=== PATIENT | male | born 1975 | race Caucasian/White ===

== ENCOUNTER 2024-03-18 01:34 | Emergency (ER) | payer OTHER, SELFPAY ==
[2024-03-18 01:35] VITALS: O2SAT 97
[2024-03-18 01:36] VITALS: BP 166/103; PULSE 97; RESP 18; TEMP 36.9; O2SAT 97
--- NOTE | 2024-03-18 02:00 | CT_ITS ---
INDICATION: ? Mastoiditis EXAMINATION: CT IAC TEMPORAL BONES - CT IAC/PF/Orbit/Sella W/ Contrast Injection TECHNIQUE:Routine noncontrast CT protocol was performed of the internal auditory canals and temporal bones. 2-D reformats were performed by the technologist. A radiation dose optimization technique was used for this scan. IV Contrast dosage and agent: None. COMPARISON: None. FINDINGS: RIGHT SIDE: No fracture. SUPERFICIAL SOFT TISSUES: Unremarkable. MASTOID AIR CELLS: Well aerated, unremarkable. EXTERNAL AUDITORY CANALS: Clear. MIDDLE EAR CAVITIES: Well aerated. Ossicles and scutum intact. INTERNAL AUDITORY CANALS: Unremarkable bilateral internal auditory canals. No osseous erosion or widening of the canal. INNER EAR: Unremarkable cochlea, vestibule and semicircular canals. LEFT SIDE: No fracture. SUPERFICIAL SOFT TISSUES: Unremarkable. MASTOID AIR CELLS: Well aerated, unremarkable. EXTERNAL AUDITORY CANALS: Clear. MIDDLE EAR CAVITIES: Well aerated. Ossicles and scutum intact. INTERNAL AUDITORY CANALS: Unremarkable bilateral internal auditory canals. No osseous erosion or widening of the canal. INNER EAR: Unremarkable cochlea, vestibule and semicircular canals. VISUALIZED BRAIN AND POSTERIOR FOSSA: Cerebello-pontine angles are unremarkable. CT/Orb Sella Post Fossa Ear W/CON IMPRESSION: No evidence of mastoiditis. Electronically Signed: Holland Sahu MD at 3:59 EDT ,
[2024-03-18] MEDS: Acyclovir 200 MG Capsule 400 MG PO (02:21)
[2024-03-18] MEDS: Fluorescein 1 MG STRIP 1 STRIP LEFT EYE (02:21)
[2024-03-18] MEDS: predniSONE 20 MG Tablet 60 MG PO (02:21)
[2024-03-18] MEDS: Tetracaine 0.5% Ophthalmic Bottle 1 DRP LEFT EYE (02:21)
[2024-03-18] MEDS: Gabapentin 300 MG Capsule PO (02:21)
--- NOTE | 2024-03-18 03:24 | EX.ED.DYSGE1 ---
HPI History of Present Illness Chief Complaint: Ear Problem Informant: patient Narrative Narrative: Patient is a 48-year-old male with no significant past medical history. He states he noticed ear pain a few days ago and went to an urgent care. He states there he was started on penicillin and prednisone secondary to an ear infection. He reports he is taking his medications as directed but has noticed increased redness and swelling to the left side of his face and ear and now he is having difficulty closing his left eye and even moving her left lip/mouth. Therefore with worsening symptoms he presents for evaluation [facility] no medical history Home Medications ?Medication ?Instructions ?Recorded ?Last Taken ?Type citalopram 40 mg tablet (Celexa) 40 mg PO DAILY 08/29/13 Unknown History cyclobenzaprine 10 mg tablet 10 mg PO TID PRN Muscle Spasm ##20 08/29/13 Unknown Rx ergocalciferol (vitamin D2) 1,250 50,000 unit PO Q7D 08/29/13 Unknown History mcg (50,000 unit) capsule (Vitamin D2) naproxen 500 mg tablet 500 mg PO BID PRN #20 tabs 08/29/13 Unknown Rx artificial tears with lanolin eye 1 applic LEFT EYE QHS PRN dry eyes 03/18/24 Unknown Rx ointment #3.5 grams artificial tears(hypromellose) 0.5 2 drp LEFT EYE Q2H PRN dry eye(s) 03/18/24 Unknown Rx % eye drops #15 mL gabapentin 300 mg capsule 300 mg PO TID 14 days #42 caps 03/18/24 Unknown Rx oxycodone-acetaminophen 5 mg-325 1 tab PO Q6H PRN pain 5 days #20 03/18/24 Unknown Rx mg tablet (Percocet) tabs prednisone 10 mg tablet 10 mg PO DAILY #15 TABLETS 03/18/24 Unknown Rx prednisone 20 mg tablet 60 mg (3 x 20 mg) PO DAILY 5 days 03/18/24 Unknown Rx #15 TABLETS valacyclovir 500 mg tablet 500 mg PO BID 5 days #10 tabs 03/18/24 Unknown Rx Allergy/AdvReac Type Severity Reaction Status Date / Time No Known Allergies Allergy Verified 03/18/24 02:31 Social History Smoking Status: Never smoker ROS ROS ED Constitutional Constitutional ED: Denies chills or fever(s) Eyes Eyes: Denies blurry vision, change in vision or diplopia ENT ENT ED: Reports ear pain left; Denies rhinorrhea or sore throat Cardiovascular Cardiovascular: Denies chest pain Respiratory/Chest Respiratory/Chest: Denies cough or dyspnea Gastrointestinal Gastrointestinal: Denies abdominal pain, diarrhea, nausea or vomiting Genitourinary Genitourinary ED: Denies dysuria Musculoskeletal Musculoskeletal: Denies myalgias or neck pain Integumentary Reports rash Neurologic Neurologic: Reports headache(s) Hematologic/Lymphatic Hematologic/Lymphatic: Denies easy bleeding or easy bruising Allergic/Immunologic Allergic/Immunologic ED: Denies mouth swelling or tongue swelling EXAM Physical Exam Const Vital Signs: 03/18/24 01:35 03/18/24 01:36 03/18/24 03:35 Temperature 98.4 F Temperature Source Oral Pulse Rate 97 75 Respiratory Rate 18 18 Blood Pressure 166/103 H 123/64 H Blood Pressure Mean 124 83 Pulse Ox 97 97 94 Oxygen Delivery Method Room Air Room Air Room Air Positive well nourished and well developed General Appearance ED: well developed HEENT Reports moist mucous membranes HEENT Narrative: No tongue or lip swelling no oral lesions no airway edema or compromise No findings in the posterior pharynx to suggest infection The patient's left ear is erythematous and swollen the erythema does track along the left cheek towards the nose/upper lip and orbit. There is no obvious vesicular changes noted at this time. There is mild swelling along the left posterior ear near the mastoid and pain with palpation at the site. The left ear canal is normal without signs of otitis externa or vesicular lesions. The TM appears normal as well. Eyes PERRL and EOMs intact bilaterally Eyes Narrative: There is scleral injection with increased tearing to the left eye. No foreign body noted Staining with fluorescein does not reveal any uptake of dye or dendritic lesions. Neck supple Neck Narrative: No nuchal rigidity or meningeal signs Resp normal respiratory effort and clear to auscultation bilaterally Cardio regular rate and regular rhythm Extremity normal to inspection Neuro oriented x3 Neuro Narrative: Patient has left-sided facial droop noted. 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 Sensorium / Orientation: alert Psych mental status grossly normal Skin Skin Narrative: Soft tissue swelling and erythema to the left face and ear as documented above MDM MDM MDM Narrative Medical decision making narrative: Patient arrived to the ER hypertensive otherwise with stable vitals. 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 He has swelling of the left ear with erythema and this tracks along the left cheek towards the nose lip and orbit and this is most consistent with early herpes zoster. With concern that there is ocular involvement the eye was stained with fluorescein but there was no dendritic lesions and therefore there is no need for emergent ophthalmology consultation. As the patient did have swelling redness and pain along the mastoids there is concern for acute mastoiditis so CT was obtained. This revealed no acute findings. As the patient's history and exam is consistent with herpes zoster leading to the Murdock's palsy could be started on Valtrex as well as high-dose steroids and given artificial tears in both the eyedrop and ointment to prevent corneal drying and ulceration. However as this is not an acute CVA and there is no ocular involvement such as dendritic lesions at this time he does not need further workup or admitted and he is otherwise safe for discharge History & Record Review Discussion w/independent historian: Patient Radiography Diagnostic Testing: Clinical Impression(s) from Imaging Studies CT Orbit Sella Inner 03/18/24 02:00 IMPRESSION: No evidence of mastoiditis. Electronically Signed: Holland Sahu MD at 3:59 EDT Reading Location ID and State: [facility] / [place] Tel , Service support , Discharge Plan Triage Chief Complaint: Ear Problem ED Provider: Guido Saldivar Dx/Rx/DC Orders Clinical Impression: Murdock's palsy, Herpes zoster Instructions: Murdock's Palsy, Shingles (Herpes Zoster) Prescriptions: New valacyclovir 500 mg tablet 500 mg PO BID 5 Days Qty: 10 0RF prednisone 20 mg tablet 60 mg PO DAILY 5 Days Qty: 15 0RF prednisone 10 mg tablet 10 mg PO DAILY Qty: 15 0RF Rx Instructions: 5 pills po day 1, 4 pills po day 2, 3 pills po day 3, 2 pills po day 4, 1 pill po day 5 gabapentin 300 mg capsule 300 mg PO TID 14 Days Qty: 42 0RF artificial tears(hypromellose) 0.5 % drops 2 drp LEFT EYE Q2H PRN (Reason: dry eye(s)) Qty: 15 0RF artificial tears with lanolin Ointment 1 applic LEFT EYE QHS PRN (Reason: dry eyes) Qty: 3.5 0RF oxycodone-acetaminophen [Percocet] 5-325 mg tablet 1 tab PO Q6H PRN (Reason: pain) 5 Days Qty: 20 0RF No Action citalopram [Celexa] 40 MG tablet 40 mg PO DAILY ergocalciferol (vitamin D2) [Vitamin D2] 50,000 UNIT capsule 50,000 unit PO Q7D cyclobenzaprine 10 MG tablet 10 mg PO TID PRN (Reason: Muscle Spasm) Qty: 20 0RF naproxen 500 MG tablet 500 mg PO BID PRN Qty: 20 0RF Stand Alone Forms: ED Work / School Excuse Primary Care Provider: [facility] Referrals: Nathan Andrew MD [Med Staff - Active Staff] - [facility] [Primary Care Provider] - Activity Restrictions/Additional Instructions: Please stop the medication prescribed from the urgent care and begin taking the prescriptions written by the ER for improved control of your Murdock's palsy most likely brought on by herpes zoster. Take the 60 mg of prednisone once daily for the next 5 days. After this, transition to the 10 mg pills on a taper dose for the final 5 days for total of 10 days of steroids. Make sure you follow-up with ophthalmology to ensure there is no involvement of your eye and return to the ER should you have any further concerns Print Language: Ukrainian Disposition Disposition: Home, Self Care
[2024-03-18 03:35] VITALS: BP 123/64; PULSE 75; RESP 18; O2SAT 94
[2024-03-18] MEDS: oxyCODONE 5 MG Tablet 10 MG PO (04:41)
[2024-03-18 04:43] VITALS: BP 149/88; PULSE 78; RESP 17; TEMP 36.6; O2SAT 99
== END 2024-03-18 04:44 | disposition home or self-care (01) ==
PROVIDERS: Emergency Provider Emergency Medicine; Visit Provider Emergency Medicine
DX: G51.0 Bell's palsy (principal); B02.9 Zoster without complications
CPT/HCPCS: 70481; 99284; Q9967; A4216